=== PATIENT | female | born 1975 | race Caucasian/White ===

== ENCOUNTER 2020-10-08 14:12 | Emergency (ER) | payer OTHER ==
[2020-10-08 17:34] LABS: HCG (URINE) SCREEN NEGATIVE (NEGATIVE)
[2020-10-08 17:41] LABS: BUN/CREAT RATIO (CALC) 9.3 RATIO; CREATININE 0.54 mg/dL (0.51-0.95); POTASSIUM 4.1 mmol/L (3.5-5.1)
[2020-10-08] MEDS ORDERED: NORCO 5-325 TA1 EACH PO ×2 (19:51→19:58)
[2020-10-08] MEDS ORDERED: AUGMENTIN 875-1 EACH PO (19:51)
== END 2020-10-08 20:30 | disposition home or self-care (01) ==
LOC: FER 14:12
PROVIDERS: Emergency Medicine
DX: K08.89 Other specified disorders of teeth and supporting structures (principal); M27.2 Inflammatory conditions of jaws; Z98.890 Other specified postprocedural states
CPT/HCPCS: 36415; 70491; 80048; 84703; J7030; Q0163; Q9967